=== PATIENT | female | born 1975 | race Hispanic/Latino ===

== ENCOUNTER 2020-02-16 08:30 | Outpatient (CLI) | payer OTHER ==
--- NOTE | 2020-02-16 10:01 | ULT ---
PELVIC ULTRSOUND INCLUDING TRANSVAGINAL AND VASCULAR DUPLEX WITH COLOR AND SPECTRAL DOPPLER IMAGING: HISTORY: Metrorrhagia. FINDINGS: The uterus measures 8.2 x 4.9 x 4.3 cm. The endometrium is 0.9 cm. Right ovary 2.1 x 2.3 x 2.9 cm. Left ovary 1.7 x 1.8 x 2.6 cm. No abscess or abnormal fluid collection. Vascular duplex demonstrates arterial inflow and venous outflow. IMPRESSION: Unremarkable pelvic ultrasound. Endometrium 0.9 cm. POS: [facility]
== END 2020-02-16 08:31 | disposition home or self-care (01) ==
LOC: BICULT 08:30
PROVIDERS: ATTEND Family Medicine
DX: N92.1 Excessive and frequent menstruation with irregular cycle (principal)
CPT/HCPCS: 76856